=== PATIENT | male | born 1955 | race Caucasian/White ===

== ENCOUNTER 2016-11-26 03:37 | Emergency (ER) | payer MEDICAID ==
[~2016-11-26] VITALS: Ht 185.4 cm; Wt 86.4 kg
[2016-11-26] MEDS ORDERED: CIP250 PO (03:50)
[2016-11-26 03:57] LABS: GLUCOSE,POINT OF CARE 282 MG/DL (70-110)
[2016-11-26 04:44] LABS: ADD UA MICROSCOPIC YES; APPEARANCE,URINE CLOUDY (CLEAR); GLUCOSE, URINE (UA) >=1000 mg/dL (NEGATIVE); KETONES,URINE NEGATIVE (NEGATIVE); LEUKOCYTE ESTERASE ,URINE MODERATE (NEGATIVE); OCCULT BLOOD,URINE LARGE (NEGATIVE); PROTEIN,URINE NEGATIVE (NEGATIVE)
[2016-11-26 04:58] VITALS: BP 135/78
[2016-11-26 05:14] LABS: SQUAMOUS EPITHELIAL CELL,UR Rare /LPF (None Seen)
== END 2016-11-26 05:04 | disposition home or self-care (01) ==
LOC: EMS 03:39
DX: N13.9 Obstructive and reflux uropathy, unspecified (principal); E11.9 Type 2 diabetes mellitus without complications; N40.0 Benign prostatic hyperplasia without lower urinary tract symptoms
CPT/HCPCS: 51702; 82962; 87086; 99284